=== PATIENT | male | born 1960 | race Caucasian/White ===

== ENCOUNTER 2017-04-24 21:02 | Emergency (ER) | payer BC ==
--- NOTE | ~2017-04-24 | ER ---
PATIENT'S NAME: JENNIFER AL [facility] AGE: 56 Y [address] ROOM: [place] [address] LOCATION: [facility] ADMIT DATE: 04/24/2017 ER/Outpatient Report DISCHARGE DATE: 04/24/2017 FAMILY PHYSICIAN: Physician, Unknown ATTENDING PHYSICIAN: Robbie Santoyo Time of Arrival: 2108 hours. Time of Evaluation: 2108 hours. CHIEF COMPLAINT: Laceration. HISTORY OF PRESENT ILLNESS: The patient states approximately 1840 hours this evening, he took his left foot and ran it across the top of his right foot and ended up receiving a laceration to the top of the right foot. He is not sure exactly what caused the laceration. He was on the ground. His feet were barefoot. He did not have any foreign object on his left foot that he could see. He had been cutting thorn bushes prior to that. Denies any numbness or tingling of his toes. ALLERGIES: NO KNOWN ALLERGIES. CURRENT MEDICATIONS: Zoloft. PAST MEDICAL HISTORY: Depression. PAST SURGICAL HISTORY: Nasal. SOCIAL HISTORY: Denies use of tobacco or drugs. Does drink beer on a daily basis. Tonight, he had one beer at supper at 1800 hours. Last tetanus was 10 years ago. REVIEW OF SYSTEMS: Negative other than those mentioned in the HPI. PHYSICAL EXAMINATION: VITAL SIGNS: He weighed 84.7 kg, blood pressure was 140/79, pulse of 89, respirations 16, temperature of 98.1 tympanic, O2 saturation was 98% on room air. GENERAL: He is awake, alert, and oriented x4. PATIENT'S NAME: JENNIFER AL [facility] AGE: 56 Y [address] ROOM: [place], [place] [address] LOCATION: [facility] ADMIT DATE: 04/24/2017 ER/Outpatient Report DISCHARGE DATE: 04/24/2017 FAMILY PHYSICIAN: Physician, Unknown ATTENDING PHYSICIAN: Robbie Santoyo SKIN: [place], warm, and dry. RESPIRATIONS: Even and nonlabored. The patient has approximately half a centimeter laceration to the top of the right foot with an abrasion after that. He has strong pedal pulses. Minimal bleeding at this time. EMERGENCY ROOM COURSE: Lacerated area was cleansed with saline and anesthetized with 1% plain Xylocaine, and then flushed with saline. No foreign object was seen. Area was cleansed well with Betadine. It was closed with 4-0 Ethilon x2 stitches. The patient tolerated the procedure well. IMPRESSION: Laceration with simple closure. PLAN: Home, rest. Keep the area clean and dry as possible. Change the Band-Aid as needed. Suture removal in 7 to 10 days. Follow up with primary provider in the next 2 to 3 days as needed. He verbalized understanding. PRAKASH ESPINAL APRN FOR [facility]/luda /[id number] d: 04/25/17 0008 t: 04/26/17 0552, OUTPATIENT REPORT
== END 2017-04-24 21:34 | disposition disaster alternative care site (69) ==
LOC: GACC 21:02
PROC: 0HQMXZZ Repair Right Foot Skin, External Approach (ICD-10-PCS; principal; 2017-04-24)
DX: S91.311A Laceration without foreign body, right foot, initial encounter (principal); F32.9 Major depressive disorder, single episode, unspecified; W60.XXXA Contact with nonvenomous plant thorns and spines and sharp leaves, initial encounter; Z79.899 Other long term (current) drug therapy